=== PATIENT | male | born 1950 | race Caucasian/White ===

== ENCOUNTER 2018-12-21 09:39 | Emergency (ER) | payer MEDICARE, BC ==
[2018-12-21 11:01] VITALS: BP 154/63
--- NOTE | 2018-12-21 13:50 | UC ---
Lower Extremity/Ankle HPI - HPI Summary HPI Summary: 3 DAYS OF GRADUALLY WORSENING PAIN IN THE LEFT LOWER EXTREMITY FROM ANKLE ALL THE WAY TO HIP. NO TRAUMA OR INJURY HE CAN IDENTIFY. NO INCREASED PHYSICAL ACTIVITY. NO JOINT PAIN. STATES IT IS A DULL PAIN THAT FEELS "LIKE A TOOTHACHE ". BETTER WITH REST AND ELEVATION AND WORSE WITH AMBULATION. TYLENOL NOT HELPING. STATES HIS LEFT LEG IS A LITTLE BIT BIGGER THAN HIS RIGHT AT BASELINE AND AT THIS APPEARANCE HAS NOT CHANGED. - History of Current Complaint Chief Complaint: UCLowerExtremity Stated Complaint: LEFT LEG CONCERN Time Seen by Provider: 12/21/18 11:19 Hx Obtained From: Patient, Family/Technology Development Intern - Onset/Duration: Gradual Onset, Lasting Days, Still Present Severity Initially: Moderate Severity Currently: Moderate Pain Intensity: 4 Pain Scale Used: 0-10 Numeric Aggravating Factor(s): Standing, Ambulation Alleviating Factor(s): Rest, Elevation Able to Bear Weight: Yes - Allergies/Home Medications Allergies/Adverse Reactions: Allergies Allergy/AdvReac Type Severity Reaction Status Date / Time albuterol Allergy "I fall on Verified 12/21/18 10:58 the floor; respiratory arrest." cephalexin Allergy Swelling Verified 12/21/18 10:58 Of Face,Lips,& Throat Penicillins Allergy Swelling Verified 12/21/18 10:58 Of Face,Lips,& Throat Home Medications: Home Medications Budesonide/Formote 160/4.5(NF) [Symbicort 160/4.5 (NF)] 1 puff INH BID 12/21/18 [History Confirmed 12/21/18] Carvedilol TAB* [Coreg TAB*] 50 mg PO BID 12/21/18 [History Confirmed 12/21/18] Losartan Potassium 100 mg PO DAILY 12/21/18 [History Confirmed 12/21/18] Pantoprazole TAB * [Protonix TAB*] 40 mg PO DAILY 12/21/18 [History Confirmed ] Potassium Chlor TAB* [Potassium Chlor TAB 20 MEQ*] 20 meq PO DAILY 12/21/18 [ History Confirmed 12/21/18] Pravastatin (NF) [Pravachol (NF)] 40 mg PO BEDTIME 12/21/18 [History Confirmed 12/21/18] Tiotropium CAP.INH* [Spiriva CAP.INH*] 1 cap.inh INH DAILY 12/21/18 [History Confirmed 12/21/18] PMH/Surg Hx/FS Hx/Imm Hx Endocrine History: Dyslipidemia Cardiovascular History: Hypertension Respiratory History: COPD - Surgical History Surgical History: Yes Surgery Procedure, Year, and Place: Left Cataract Extraction, 12/06/18, [place]; Umbilical Herniorrhaphy, ~2010, [place] - Family History Known Family History: Negative: Blood Disorder - Social History Alcohol Use: Occasionally Substance Use Type: None Smoking Status (MU): Former Smoker Type: Cigarettes Length of Time of Smoking/Using Tobacco: 2 PPD x 30+ Years When Did the Patient Quit Smoking/Using Tobacco: 2009 Review of Systems All Other Systems Reviewed And Are Negative: Yes Constitutional: Positive: Negative Skin: Positive: Negative Respiratory: Positive: Negative Cardiovascular: Positive: Negative Gastrointestinal: Positive: Negative Musculoskeletal: Positive: Calf Tenderness, Edema Physical Exam Triage Information Reviewed: Yes Appearance: Well-Appearing, No Pain Distress, Well-Nourished Vital Signs: Initial Vital Signs Temp 97.7 F 12/21/18 10:55 Pulse 65 12/21/18 10:55 Resp 18 12/21/18 10:55 BP 154/63 12/21/18 10:55 Pulse Ox 98 12/21/18 10:55 Vital Signs Reviewed: Yes Eyes: Positive: Conjunctiva Clear ENT: Positive: Hearing grossly normal Neck: Positive: Supple Respiratory: Positive: No respiratory distress, No accessory muscle use Cardiovascular: Positive: Pulses Normal Abdomen Description: Positive: Soft Musculoskeletal: Positive: ROM Intact, Edema @ - CALF CIRCUMFERENCE: LEFT 40CM, RIGHT 38.5CM, Other: - NO CALF TENDERNESS, NEG HOMANS Neurological: Positive: Alert, Muscle Tone Normal Psychological: Positive: Normal Response To Family, Age Appropriate Behavior Skin: Negative: Rashes Diagnostics - Radiology LLE US Radiology Interpretation Completed By: Radiologist Summary of Radiographic Findings: No evidence for LEFT lower extremity deep venous thrombosis. Lower Extremity Course/Dx - Course Course Of Treatment: ULTRASOUND TODAY UNREMARKABLE. NO DVT OR OTHER ABNORMALITY IDENTIFIED. UNCLEAR ETIOLOGY OF PATIENT'S DISCOMFORT. ADVISED OTC MEDICATIONS NEEDED. TRAMADOL FOR BREAKTHROUGH. REST, ELEVATE, FOLLOW-UP WITH PCP OR ORTHOPEDICS FOR FURTHER EVALUATION. GO TO THE ER WITHOUT FAIL IF SYMPTOMS WORSEN. - Differential Dx/Diagnosis Provider Diagnosis: Pain and swelling of left lower extremity Discharge - Sign-Out/Discharge Documenting (check all that apply): Patient Departure All imaging exams completed and their final reports reviewed: Yes - Discharge Plan Condition: Stable Disposition: HOME Prescriptions: traMADol TAB* [Ultram*] 50 mg PO Q6HR PRN #[id number] tab MDD 4 PRN Reason: Pain Patient Education Materials: Leg Pain (ED) Referrals: Niels Batista MD [Primary Care Provider] - 1 Week Neal Lake MD [Medical Doctor] - 1 Week Additional Instructions: ULTRASOUND TODAY UNREMARKABLE. NO DVT OR OTHER ABNORMALITY SEEN. UNCLEAR CAUSE OF YOUR DISCOMFORT. REST, ELEVATE THE LEG. IBUPROFEN/TYLENOL NEEDED FOR DISCOMFORT. TRAMADOL FOR BREAKTHROUGH. FOLLOW-UP WITH YOUR PCP OR ORTHO IF YOU'RE NOT IMPROVING OVER THE NEXT WEEK. GO TO THE ER WITHOUT FAIL IF YOU DEVELOP WORSENING PAIN, SHORTNESS OF BREATH, CHEST PAIN, RAPID HEART RATE, FEVER OR ANY OTHER CONCERNING SYMPTOMS. Leg pain, non-specific: We did not find a specific cause for your leg pain. But there's no sign of a serious problem at this time. Often the cause of the pain becomes obvious with time, or the pain simply goes away. The most common causes of unexplained leg pain are: Muscle irritation. Muscle fatigue, overuse, pressure on the muscle from sitting or lying in one position, or immune reaction to muscle tissue can cause pain. Cholesterol-lowering drugs (statins) can inflame muscles. Dehydration or mineral deficits: Low levels of potassium, salt, calcium, or magnesium can cause cramps or leg muscle pain. Diuretics (water pills) can cause this. Subtle injury. Strains or bruises that were so minor they weren't noticed can cause pain a day or two later. A "stress fracture" of a leg bone can be caused by overuse. "Tavarez splints" is pain in the front of the lower leg caused by overuse or hard running. Nerve pain. Leg pain can be caused by disc disease in the back (sciatica or "pinched nerve") or by damage to nerves by diabetes, alcohol abuse, smoking, or vitamin deficiency. A bruise or pressure on a nerve can cause pain. Tendonitis. Inflammation of a tendon can cause leg pain. Sometimes it's not obvious which tendon is responsible. Varicose veins and post-phlebitic syndrome. Abnormal veins sometimes cause widespread leg aching, particularly after being up on your feet all day. Arthritis. Sometimes the pain of an inflamed joint is felt through a wide area. Restless legs. This is an uncomfortable tightness that builds in the legs, making you want to move them. Sometimes it's caused by medication. Blood clots. We found no sign of blood clots during your evaluation today. Clots in tiny veins may cause pain but be non-detectable. Vascular disease. Narrowed arteries can make your muscles run short of oxygen, causing pain with walking. Other serious causes but more rare causes of leg pain include infection, tumors, and bone degeneration. Rest as much as possible. Elevate your leg while resting. Gently stretch your leg muscles four times a day. Use [id number] pain medicine like acetaminophen or ibuprofen. Gentle compression like support hose or elastic bandages might help. Warm up your leg muscles before physical activity. Carefully control any underlying health problems such as diabetes, high blood pressure, heart failure, gout, or arthritis. Eliminate alcohol and tobacco. See the doctor if you have significant changes, such as swelling, redness, fever, increasing pain, numbness, or discoloration. IBUPROFEN MAX DOSE: 600MG (3 TABS) EVERY 6 HRS OR 800MG (4 TABS) EVERY 8 HRS TYLENOL MAX DOSE: 1000MG (2 EXTRA STRENGTH TABS) EVERY 8 HRS OR 650MG (2 REGULAR TABS) EVERY 6 HRS - Billing Disposition and Condition Condition: STABLE Disposition: Home
== END 2018-12-21 12:39 | disposition home or self-care (01) ==
LOC: UCCORT 09:39
DX: M79.662 Pain in left lower leg (principal); M79.652 Pain in left thigh; I10 Essential (primary) hypertension; E78.5 Hyperlipidemia, unspecified; J44.9 Chronic obstructive pulmonary disease, unspecified; Z87.891 Personal history of nicotine dependence
CPT/HCPCS: 99202; G0463